=== PATIENT | female | born 1990 | race Hispanic/Latino ===

== ENCOUNTER 2018-02-19 19:11 | Emergency (ER) | payer OTHER ==
[2018-02-19] MEDS ORDERED: NEOMYCIN/POLYMYXIN/HC OTIC SUSP 10ML BOTTLE ONE (19:48)
[2018-02-19] MEDS ORDERED: AMOXICILLIN 500 MG CAPSULE PO ONE (19:48)
== END 2018-02-19 20:05 | disposition home or self-care (01) ==
LOC: EDH 19:11
DX: H66.011 Acute suppurative otitis media with spontaneous rupture of ear drum, right ear (principal); F90.9 Attention-deficit hyperactivity disorder, unspecified type